=== PATIENT | female | born 1980 | race Caucasian/White ===

== ENCOUNTER 2025-04-22 19:29 | Emergency (ER) | payer BC, SELFPAY ==
[2025-04-22 19:32] VITALS: BP 160/98
[2025-04-22 19:48] LABS: Urine Character Clear (Clear)
[2025-04-22 19:56] LABS: Urine Red Blood Cell 0-2 /HPF (0-2); Urine Squamous Cell >30 /LPF (Few)
[2025-04-22 19:57] LABS: Hematocrit 42.2 % (37.0-47.0); Hemoglobin 14.7 g/dL (12.0-16.0); Mean Corp Hgb Conc. 34.8 g/dL (33.0-37.0); Mean Corpuscular Volume 88.5 fL (81.0-99.0); Nucleated Red Blood Cells % 0 %; Platelet Count 224 10^3/uL (130-400); Red Cell Dist. Width 12.5 % (11.5-14.5)
[2025-04-22 20:08] LABS: ALT (SGPT) 46 U/L (0-35); AST (SGOT) 47 U/L (14-36); Albumin 4.3 g/dl (3.5-5.0); Alkaline Phosphatase 73 U/L (38-126); Blood Urea Nitrogen 21 mg/dl (7-17); Calcium 9.6 mg/dl (8.4-10.2); Carbon Dioxide 26 mmol/L (22-30); Chloride 106 mmol/L (98-107); Glucose 115 mg/dl (70-99); Potassium 3.8 mmol/L (3.5-5.1); Sodium 139 mmol/L (135-145); Total Protein 7.4 g/dl (6.3-8.2); eGFR > 60.00
[2025-04-22 20:13] LABS: Troponin I < 0.012 ng/ml
[2025-04-22 21:46] VITALS: BMI 51.7
[2025-04-22 21:54] VITALS: BP 138/94
[2025-04-22 22:00] VITALS: BP 142/95
[2025-04-22] MEDS: TYLENOL 1000 MG PO (23:01)
[2025-04-22] MEDS: ZOFRAN ODT (ORALLY DISINTEGRATING) 4 MG PO (23:01)
[2025-04-22 23:32] LABS: D-Dimer 0.46 ug/mlFEU (0.00-0.50)
[2025-04-22 23:35] LABS: COVID-19 Antigen Negative (Negative)
[2025-04-23] MEDS: BACTRIM DS 800 MG/160 MG 1 TABLET PO (00:58)
[2025-04-23] MEDS: ORETIC 25 MG PO (00:58)
--- NOTE | 2025-04-23 00:59 | ED.GENMED ---
History of Present Illness
General
Chief Complaint: Blood Pressure Problem
Time Seen by Provider: 04/22/25 22:29
Nursing documentation reviewed up to this point in time: agreed with
History of Present Illness
History of Present Illness:
44-year-old female presents to the ER with her mother for evaluation of multiple complaints. Patient is visiting the area from [place]. [place] just got [place] from the beach where they were traveling with family members, including a grandmother who
currently has a cold. Patient states that she has been having headache intermittently over the past few days. She has also been feeling generally achy with some mild nausea. She has not had any vomiting or diarrhea. She reports that before she
came to the area she had been seen at urgent care and was diagnosed with urinary tract infection-she was given prescription nitrofurantoin which she reports she has previously not been responsive to. She does have a complicated prior history of
kidney stones which required retrieval and had been related to an ongoing infection in her kidney. Her last treatment for this complicated urinary tract infection was approximately 4 months ago-she had not been on antibiotics until last week. She
has been taking all of her medications as prescribed including her blood pressure medication. She had taken some Tylenol earlier with minimal change in her symptoms. She denies dysuria but reports diffuse back pain. She denies chest pain or
shortness of breath. She is also been noticing swelling to her bilateral lower extremities. She states that when she goes to the beach she frequently experiences swelling but has never had it for this many days after returning from the beach.
Patient has no prior personal history of venous thromboembolic disease. She reports that she was advised by her physician to avoid using NSAIDs and to not have any additional CAT scans this year as she has already had 2. Patient denies sore throat
but has been experiencing some pressure in her ears. She denies having received vaccines for COVID.
Past History
Past History
ED Past Medical History: Asthma, HTN, Psychiatric (Anxiety, Bipolar), Other (kidney stones) and Other (Also history of pneumonia, chronic back pain, morbid obesity, PCOS)
ED Past Surgical History: Gynecological (D&C)
Social History
Tobacco: Smoker (Very few cigarettes per week)
Alcohol: Occasional
Drug: None
Personal: Single
Living: other (s.o.)
Employment: Employed
Family History
Family History: Hypertension; Negative Diabetes
Review of Systems
Review of Systems
Allergies reviewed?: Yes
Phy Exam
Physical Exam
Physical Exam:
Patient is awake, alert, obese, moving easily on the stretcher without assistance, appears in no acute distress, no photophobia, GCS is 15, moving all extremities equally without focal deficit, mucous membranes moist, no JVD, heart regular rate and
rhythm no murmurs or ectopy, lungs are clear to auscultation without wheezes rales or rhonchi, abdomen is soft and nontender, back is diffusely tender on palpation without overlying skin change, bilateral lower extremities with trace edema at the
ankles, no calf pain on palpation
Course
Orders/Labs/Results
Orders:
Orders
04/22/25 19:34
ECG [Electrocardiogram (*1)] Urgent
Reason for Study: Hypertension, Benign
EKG- Treatment ONCE
04/22/25 19:42
Complete Blood Count/With Diff Urgent
Comprehensive Metabolic Panel Urgent
Troponin I Urgent
UA Reflex to Culture [Urinalysis Reflex To Culture] Urgent
Date Specimen was Collected: 04/22/25
Time Specimen was Collected: 19:37
Urine Microscopic Reflex Cult Urgent
Urine Culture Urgent
COTY Source: U
Specimen Description:
Date Specimen was Collected: 04/22/25
Time Specimen was Collected: 19:37
04/22/25 22:52
Acetaminophen [Tylenol] 1,000 mg PO NOW STA
Ondansetron Orally Disint [Zofran Odt (Orally Disintegrating)] 4 mg PO NOW STA
04/22/25 23:14
COVID-19 Antigen Urgent
Source: Nasal Swab
D-Dimer Urgent
04/23/25 00:31
Hydrochlorothiazide [Oretic] 25 mg PO NOW STA
Ketorolac [Toradol] 30 mg IM NOW STA
04/23/25 00:33
Sulfamethox./Trimethoprim Ds [Bactrim Ds 800 mg/160 mg] 1 tablet PO NOW STA
Abnormal Lab Results
04/22/25
19:42
Absolute Monos (auto) 0.7 H 10^3/uL
(0.1-0.6)
BUN 21 H mg/dl
(7-17)
Glucose 115 H mg/dl
(70-99)
AST 47 H U/L
(14-36)
ALT 46 H U/L
(0-35)
Leukocyte Esterase Rfl 1+ A
(Negative)
Urine Bacteria (Reflex) Moderate A
(Negative)
Urine Albumin (Reflex) 1+ A
(Neg - Trace)
04/22/25 19:42
04/22/25 19:42
Very reassuring labs including normal white blood count, preserved kidney function, negative D-dimer. Urinalysis appears consistent with contamination. Minimal elevation in LFTs.
Vital Signs
Initial and Last Documented VS:
Initial Vital Signs
Temp Pulse Resp BP Pulse Ox
98.3 F 86 18 160/98 98
04/22/25 19:32 04/22/25 19:32 04/22/25 19:32 04/22/25 19:32 04/22/25 19:32
Last Documented Vital Signs
Temp Pulse Resp BP Pulse Ox
98.0 F 80 35 129/75 97
04/22/25 21:46 04/23/25 00:30 04/23/25 00:43 04/23/25 01:00 04/23/25 01:06
MDM/Problems Addressed
Differential Diagnosis Includes:
Differential diagnosis to consider but not limited to urinary tract infection, pyelonephritis, viral syndrome, COVID, hypertensive urgency, DVT along with other etiologies considered
Chronic conditions affecting care:
Obesity, hypertension, renal colic
*Pulse Oximetry
SaO2: 97
Oxygen Mode of Delivery: Room air
Patient hypoxic: no
*EKG
Interpreted by ED Provider?: Yes (I independently viewed and interpreted twelve-lead EKG showing normal sinus rhythm, rate 85, leftward axis, nonspecific EKG with borderline LVH, no change compared to prior from 08/17/2018)
*Editor At Large Interpretation
Rate: normal (I independently viewed and interpreted rhythm strip showing normal sinus rhythm, no ectopy)
*Critical Care Note
Total Time (30-74mins, 75-104mins- exclusive of procedures): Not Applicable
Update Note
Update Note:
Patient was able to tolerate p.o. without any emesis in the emergency department. I discussed with patient limitation in identifying possible stone without doing CT scanning. I discussed with patient all test results including urinalysis which is
not convincing for infection, however she did recently complete a course of antibiotics. Given her prior history of complicated infection along with myalgias and nausea, will provide patient with prescription Bactrim pending urine culture results.
I discussed with patient benefit of following up with her primary care physician on return to [place]. I discussed with patient brief use of hydrochlorothiazide to help with peripheral edema and for further blood pressure management although blood
pressure elevation is likely related to discomfort and feeling generally unwell. Patient and mother feel comfortable with plan for discharge home. She was given Tylenol and Zofran while in the ER with minimal change in her symptoms. She was given
1 dose of Toradol prior to leaving. She had no questions prior to the department.
ED Attending Note
-
Portions of this chart may have been created with voice recognition software.� Occasional wrong word or��sound alike� substitutions may have occurred due to the inherent limitations of voice recognition software.
Discharge Plan
Departure
Patient Disposition: Home (Routine Discharge)
Date of Disposition: 04/23/25
Time of Disposition: 00:32
Patient with high blood pressure during this ER visit?: Yes
Discharge Problem:
Edema, Headache, Urinary tract infection, myalgias, Acute otalgia
Instructions: Urinary tract infections in adults, Swelling, BLOOD PRESSURE
Prescriptions:
New
hydrochlorothiazide 12.5 mg capsule
12.5 mg PO DAILY PRN (Reason: swelling) Qty: 10 0RF
sulfamethoxazole-trimethoprim [Bactrim DS] 800-160 mg tablet
1 tab PO BID Qty: 20 0RF
No Action
acetaminophen [Tylenol Extra Strength] 500 MG tablet
1,000 mg PO DAILY
lisinopril 10 MG tablet
10 mg PO HS
oxycodone-acetaminophen 5 MG/325 MG tablet
1 tab PO Q6HPRN PRN (Reason: pain) Qty: 10 0RF
tamsulosin [Flomax] 0.4 MG capsule
0.4 mg PO DAILY Qty: 10 0RF
tamsulosin 0.4 MG capsule
0.4 mg PO DAILY Qty: 10 0RF
oxycodone 5 MG tablet
5 mg PO Q6H PRN (Reason: pain) Qty: 14 0RF
Referrals:
UNKNOWN - PT DOES,NOT KNOW [Family Provider]
Activity Restrictions/Additional Instructions:
Drink at least eight 8 ounce glasses of water daily. Please complete course of antibiotics as prescribed. Use hydrochlorothiazide as prescribed until seen in follow-up by your family physician next week. Please return to the ER for any concerns.
Please use [id number] antihistamine-Zyrtec, Benadryl or similar [id number] medication, prior to flying given your concern for ear pressure
Interventions
Interventions:
*Risk Screen - Suicide Last Done: 04/22/25 19:32
*General Assessment Last Done: 04/22/25 21:46
*Neglect/Abuse Screening Last Done: 04/22/25 21:46
*ED- Fall Risk Assessment Last Done: 04/22/25 21:46
*ED COVID-19 Vaccine History Last Done: 04/22/25 21:46
*Nursing Disposition Last Done: 04/23/25 01:23
ED- Cardiac Assessment Last Done: 04/22/25 21:46
ED- Neurological Assessment Last Done: 04/22/25 21:46
ED- Pulmonary Assessment Last Done: 04/22/25 21:46
Discharge Date and Time
Print Language: LITHUANIAN
[2025-04-23 01:00] VITALS: BP 129/75
[2025-04-23] MEDS: TORADOL 30 MG IM (01:01)
== END 2025-04-23 01:24 | disposition home or self-care (01) ==
LOC: EMR 19:29
PROVIDERS: Student in an Organized Health Care Education/Training Program; EMERGENCY PHYSICIAN Emergency Medicine
DX: R60.0 Localized edema (principal); R51.9 Headache, unspecified; N39.0 Urinary tract infection, site not specified; M79.10 Myalgia, unspecified site; H92.09 Otalgia, unspecified ear; J45.909 Unspecified asthma, uncomplicated; I10 Essential (primary) hypertension; F31.9 Bipolar disorder, unspecified; E66.01 Morbid (severe) obesity due to excess calories; E28.2 Polycystic ovarian syndrome; F17.210 Nicotine dependence, cigarettes, uncomplicated; Z82.49 Family history of ischemic heart disease and other diseases of the circulatory system; Z87.440 Personal history of urinary (tract) infections; Z87.442 Personal history of urinary calculi
CPT/HCPCS: 99283; 96372; 80053; 81003; 81015; 84484; 85025; 85379; 87086; 87811; 93005